=== PATIENT | male | born 1965 | race Two or more races ===

== ENCOUNTER 2020-04-12 05:45 | Day surgery (SDC) | payer OTHER ==
[~2020-04-12] VITALS: Ht 185.4 cm; Wt 88.5 kg
[2020-04-12] VITALS (9 sets, daily range): BP systolic 104–146; BP diastolic 60–80
[2020-04-12] MEDS ORDERED: LR 1000ml 1,000 ML IVLG SCH (06:00)
[2020-04-12] MEDS ORDERED: LR 1000ml ONE (07:00)
[2020-04-12] MEDS ORDERED: Lidocaine 1% MPF 10mg/ml 5ml ONE (07:00)
--- NOTE | 2020-04-12 07:09 | Short Stay Surgery H&P ---
History of Present Illness History of Present Illness Chief Complaint see attached HPI Brendan Garcia is a 54 year old male who was admitted on for Gerd And Screening Patient History Allergies: Coded Allergies: No Known Allergies (Unverified , 04/10/20) Medication History No Active Prescriptions or Reported Meds Physical Exam Vital Signs Last Vital Signs Date Time Temp Pulse Resp B/P (MAP) Pulse Ox O2 Delivery O2 Flow Rate FiO2 04/12/20 06:31 Room Air 04/12/20 06:31 96.7 58 18 146/75 98 Plan Attestation Are the patient's medical conditions optimized for surgery? Carlin Ferguson MD Apr 12, 2020 07:09
--- NOTE | 2020-04-12 07:09 | Pre-Procedure Note/Attestation ---
Pre-Procedure Note/Attestation Complete Prior to Procedure Planned Procedure: not applicable Procedure Narrative: esophagogastroduodenoscopy colon Indications for Procedure Pre-Operative Diagnosis: vomit screen Attestation I attest that I discussed the nature of the procedure; its benefits; risks and complications; and alternatives (and the risks and benefits of such alternatives ), prior to the procedure, with the patient (or the patient's legal cash application representative). I attest that, if there was a reasonable possibility of needing a blood transfusion, the patient (or the patient's legal cash application representative) was given the [facility] standardized written summary, pursuant to the [place] Blood Safety Act ([place] Health and Safety Code # 1645, as amended). I attest that I re-evaluated the patient just prior to the surgery and that there has been no change in the patient's H&P, except as documented below: Carlin Ferguson MD Apr 12, 2020 07:09
[2020-04-12] MEDS ORDERED: NS 500ML IVPB ONE (07:33)
--- NOTE | 2020-04-12 08:05 | Immediate Post-Op Evaluation ---
Immediate Post-Op Evalulation Immediate Post-Op Evalulation Procedure: EGD/Colonoscopy Date of Evaluation: Apr 12, 2020 Time of Evaluation: 08:05 IV Fluids: 800 Blood Pressure Systolic: 104 Blood Pressure Diastolic: 79 Pulse Rate: 57 Respiratory Rate: 14 O2 Sat by Pulse Oximetry: 98 Temperature (Fahrenheit): 97.8 Nausea: No Vomiting: No Complications none Patient Status: awake, reacts, patent Hydration Status: adequate Drug: none Hamida Cannon CRNA Apr 12, 2020 08:05
--- NOTE | 2020-04-12 08:07 | Anethesia Preoperative Eval ---
Anesthesia Pre-op PMH/ROS General Date of Evaluation: Apr 12, 2020 Time of Evaluation: 07:00 Anesthesiologist: carrillo ASA Score: ASA 1 Mallampati Score Class I : Soft palate, uvula, fauces, pillars visible Class II: Soft palate, uvula, fauces visible Class III: Soft palate, base of uvula visible Class IV: Only hard plate visible Mallampati Classification: Class II Surgeon: wang Diagnosis: GERD Screening Surgical Procedure: EGD/Colonoscopy Anesthesia History: none Social History: smoking Family History: no anesthesia problems Allergies: Coded Allergies: No Known Allergies (Unverified , 04/10/20) Medications: see eMAR Patient NPO?: Yes NPO Date: Apr 12, 2020 NPO Time: 00:01 Past Medical History Cardiovascular: Denies: HTN, CAD, [place], valve dz, arrhythmia, other Pulmonary: Denies: asthma, COPD, PAM, other Gastrointestinal/Genitourinary: Reports: GERD; Denies: CRI, ESRD, other Neurologic/Psychiatric: Reports: depression/anxiety; Denies: dementia, CVA, TIA, other Endocrine: Denies: DM, hypothyroidism, steroids, other HEENT: Denies: cataract (L), cataract (R), glaucoma, ENTERPRISE (L), ENTERPRISE (R), other Hematology/Immune: Denies: anemia, DVT, bleeding disorder, other Musculoskeletal/Integumentary: Denies: OA, RA, DJD, DDD, edema, other Anesthesia Pre-op Phys. Exam Physician Exam Last Vital Signs Date Time Temp Pulse Resp B/P (MAP) Pulse Ox O2 Delivery O2 Flow Rate FiO2 04/12/20 06:31 Room Air 04/12/20 06:31 96.7 58 18 146/75 98 Constitutional: NAD Neurologic: CN 2-12 intact Cardiovascular: RRR Respiratory: CTA Gastrointestinal: S/NT/ND Airway Exam Mallampati Classification 2 Mallampati Score: Class II MO: full ROM: full Dentures: no upper, no lower Anesthesia Pre-op A/P Studies Pre-op Studies: EKG - sr Risk Assessment & Plan Assessment: covid neg Plan: mac Status Change Before Surgery: No Pre-Antibiotics Drug: none Hamida Cannon CRNA Apr 12, 2020 08:07
--- NOTE | 2020-04-12 09:10 | Endoscopy Procedure Note ---
Endoscopy Procedure Note General Indication for Procedure: Vomiting Procedures Performed: EGD Operative Findings/Diagnosis: 3-4 cm HH, GERD, possible 1 cm barretts, dodule a GEJ, normal colon Specimen: yes Pt Tolerated Procedure Well: Yes Estimated Blood Loss: none Anesthesia Anesthesiologist: CLAIR Anesthesia: MAC Medications Medication Given: see anesthesia record Inserted Devices Implant(s) used?: No GI Core Measures 50 yrs or older w/o bx or poly: Yes 10yrs. F/U recommended: Yes If not recommended, why?: 18 years or older w/prev. colo: No <3yrs. since last colonoscopy: No Med reason:<3 yrs.: System Reason:<3 yrs.: Last colonoscopy >= to 3yrs: Yes Carlin Ferguson MD Apr 12, 2020 09:10
--- NOTE | 2020-04-12 09:12 | Brief Operative Note ---
Immediate Post Operative Note Operative Note Chief Complaint: vomiting, screen Pre-op Diagnosis: vomit screen Procedure: esophagogastroduodenoscopy colon Post-op Diagnosis: HH, DENITA, EJ nodule, normal colon Surgeon: sharlene Anesthesiologist: latrell Anesthesia: MAC Specimen: yes Complications: none Condition: stable Fluids: per anesthesia Estimated Blood Loss: none Drains: none Implant(s) used?: No Carlin Ferguson MD Apr 12, 2020 09:12
--- NOTE | 2020-04-12 11:51 | 48 Hour Post Anesthesia Eval ---
Post Anesthesia Evaluation Procedure: EGD/Colonoscopy Date of Evaluation: Apr 12, 2020 Time of Evaluation: 11:50 Blood Pressure Systolic: 135 0: 70 Pulse Rate: 57 Respiratory Rate: 14 O2 Sat by Pulse Oximetry: 98 Airway: patent Nausea: No Vomiting: No Hydration Status: adequate Cardiopulmonary Status: stable Mental Status/LOC: patient returned to baseline Follow-up Care/Observations: na Post-Anesthesia Complications: none Follow-up care needed: N/A Hamida Cannon CRNA Apr 12, 2020 11:50
--- NOTE | 2020-04-12 15:30 | Operative Note - Dictated ---
DATE OF OPERATION: 04/12/2020 GASTROENTEROLOGY PROCEDURE REPORT PROCEDURE: Upper gastrointestinal endoscopy with biopsy as well as colonoscopy. SURGEON: Carlin Ferguson MD. ANESTHESIA: Please see the separate anesthesiologist notes for details. PRE-ENDOSCOPIC DIAGNOSES: 1. Nausea, vomiting, and suspected gastroesophageal reflux. 2. Need for screening colonoscopy. POST-ENDOSCOPIC DIAGNOSES: 1. A 3 to 4 cm hiatal hernia. 2. Erosive changes above the hiatal hernia suggestive of gastroesophageal reflux. 3. A 1 cm tongue of gastric colon mucosa above the gastroesophageal junction suggestive of short-segment Garza's. 4. Normal colonoscopy including 10 cm of terminal ileum. DESCRIPTION OF PROCEDURE: The procedure, its risks, indications, alternatives, and possible complications including but not limited to bleeding, infection, perforation, , and anesthesia complications were explained to the patient and informed consent was obtained. The patient was then sedated in the left lateral decubitus position and a diagnostic upper endoscope was introduced into oropharynx and advanced to the duodenum without difficulty. The endoscope was then gradually withdrawn and mucosa examined carefully. Examination of the upper gastrointestinal mucosa revealed a 3 to 4 cm hiatal hernia with some inflammatory changes above it suggestive of gastroesophageal reflux. 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 At the distal end of the tongue at the gastroesophageal junction, there was a slight nodularity seen. This nodularity was at 37 cm at the gastroesophageal junction, which was biopsied. Separate biopsies from 36 cm were also sent to pathology. Random biopsies of the duodenum, antrum, and mid esophagus were also sent to pathology. The endoscope was then removed. The rectal exam was done. Then the colonoscope was introduced in the rectum and advanced to 10 cm into the terminal ileum without difficulty. The colonoscope was then gradually withdrawn and the mucosa examined carefully. Examination of colonic mucosa as well as the terminal ileal mucosa did not reveal any abnormalities. Retroflexed view of the rectum was unremarkable. The colonoscope was removed and the patient was sent to recovery in good condition. COMPLICATIONS: None. ASSESSMENT: This examination was notable for a hiatal hernia and significant effects of gastroesophageal reflux. The patient will need to be on long-term acid suppression and reflux precautions. Biopsies will be reviewed and will be discussed with the patient as an outpatient. RECOMMENDATIONS: 1. Begin Prilosec 40 mg p.o. daily. 2. Reflux precautions. 3. Follow up biopsy results. 4. Outpatient followup. Thank you for asking me to participate in the care of this patient. Carlin Ferguson M.D. DR: CHELO JOB#: [id number] CC: MD CARLIN Rosado M.D. ; FAX#: [phone]
== END 2020-04-12 09:15 | disposition home or self-care (01) ==
LOC: GAS 05:45
DX: Z12.11 Encounter for screening for malignant neoplasm of colon (principal); R11.2 Nausea with vomiting, unspecified; K44.9 Diaphragmatic hernia without obstruction or gangrene; K21.0 Gastro-esophageal reflux disease with esophagitis; F32.9 Major depressive disorder, single episode, unspecified; F41.9 Anxiety disorder, unspecified; E66.3 Overweight; Z68.25 Body mass index [BMI] 25.0-25.9, adult
CPT/HCPCS: 43239; 94003; G0121; J2704; J7040; J7120; U0002; 94150